=== PATIENT | male | born 1940 | race Two or more races ===

== ENCOUNTER 2023-04-01 09:49 | Emergency (ER) | payer OTHER ==
[~2023-04-01] VITALS: Ht 175.3 cm; Wt 77.1 kg
[2023-04-01] MEDS ORDERED: VASOTEC10 MG PO (10:20)
[2023-04-01] MEDS ORDERED: INDAPAMIDE2.5 MG PO (10:20)
[2023-04-01] MEDS ORDERED: ATORVASTATIN CA20 MG PO (10:20)
[2023-04-01] MEDS ORDERED: HORIZANT600 MG PO (10:21)
[2023-04-01] MEDS ORDERED: AMLODIPINE-OLM1 EAC2 PO (10:21)
[2023-04-01] MEDS ORDERED: ADULT LOW DOSE81 M1 PO (10:21)
[2023-04-01] MEDS ORDERED: HUMALOG100 UNIT/2 SUBCUTANEO (10:22)
[2023-04-01] MEDS ORDERED: LANTUS SOL100 UNIT/1 SUBCUTANEO (10:23)
[2023-04-01 11:49] LABS: PH,URINE 5.5 (5.0-8.0); URINE APPEARANCE Clear; URINE BILIRRUBIN Negative (NEGATIVE); URINE BLOOD Negative; URINE COLOR Yellow; URINE GLUCOSE Negative (NEGATIVE); URINE LEUKOCYTE Negative; URINE NITRATE Negative; URINE PROTEIN Negative (NEGATIVE); URINE UROBILINOGEN 0.2 E.U./dl
[2023-04-01 11:54] LABS: URINE BACTERIA 7.5 uL (0.0-1933); URINE EPITHELIAL CELLS 1.5 uL (0.0-38.8); URINE RBC 2.2 uL (0.0-20.8); URINE WBC 4.4 uL (0.0-23.2)
[2023-04-01 14:42] LABS: HEMATOCRIT 36.6 % (39.0-48.0); HEMOGLOBIN 12.6 g/dL (13-16.00); MEAN CELL VOLUME 95.2 fL (80.0-100.00); MEAN CORPUSCULAR HEMOGLOBIN 32.8 pg (27.00-32.0); MEAN CORPUSCULAR HGB CONC 34.4 g/dl (32.0-36.0); PLATELET COUNT 185 K/uL (150-450); RED BLOOD COUNT 3.85 M/uL (4.00-6.00); RED CELL DISTRIBUTION WIDTH 13.1 % (11.5-14.5)
[2023-04-01 15:05] LABS: ALBUMIN 3.7 gm/dL (3.4-5.0); BILIRUBIN TOTAL 0.54 mg/dL (0.3-1.2); BILIRUBIN,CONJUGATED 0.12 mg/dL (0.0-0.2); BILIRUBIN,UNCONJUGATED 0.42 mg/dL (0.0-0.6); CALCIUM 9.5 mg/dL (8.5-10.1); CREATININE SERUM 1.08 mg/dL (0.70-1.30); GFR 65.14; POTASSIUM 3.78 mEq/L (3.5-5.1); TOTAL PROTEIN 7.7 gm/dL (6.4-8.2)
== END 2023-04-01 18:54 | disposition home or self-care (01) ==
LOC: ER 09:49
PROVIDERS: General Practice
DX: K52.9 Noninfective gastroenteritis and colitis, unspecified (principal); E86.0 Dehydration; K57.30 Diverticulosis of large intestine without perforation or abscess without bleeding; Z20.822 Contact with and (suspected) exposure to COVID-19; I10 Essential (primary) hypertension; E11.9 Type 2 diabetes mellitus without complications; Z79.4 Long term (current) use of insulin; I50.9 Heart failure, unspecified
CPT/HCPCS: 36415; 74176; 96365; 96366; 99284; J0744; J3490

== ENCOUNTER 2024-09-21 19:42 | Emergency (ER) | payer OTHER ==
[~2024-09-21] VITALS: Ht 172.7 cm; Wt 73.5 kg
[~2024-09-21 19:42] MED LIST: ADULT LOW DOSE81 M1 PO; AMLODIPINE-OLM1 EAC2 PO; ATORVASTATIN CA20 MG PO; HORIZANT600 MG PO; HUMALOG100 UNIT/2 SUBCUTANEO; INDAPAMIDE2.5 MG PO; LANTUS SOL100 UNIT/1 SUBCUTANEO; VASOTEC10 MG PO
[2024-09-21] MEDS ORDERED: JARDIANCE10 MG (19:47)
[2024-09-21] MEDS ORDERED: ZYPREXA20 MG (19:48)
[2024-09-21] MEDS ORDERED: CLONAZEPAM0.125 MG (19:48)
[2024-09-21] MEDS ORDERED: ERLEADA60 MG (19:50)
[2024-09-21] MEDS ORDERED: XARELTO1 MG/1 ML (19:51)
[2024-09-21] MEDS ORDERED: CEFTRIAXONE SODIUM 2,000 MG VIAL IV STA (20:57)
[2024-09-21] MEDS ORDERED: CEFTRIAXONE SODIUM 1,000 MG VIAL ONE (21:15)
[2024-09-21 21:52] LABS: BASO % 0.5 % (0.1-1.2); EOS # 0.13 (0.04-0.54); EOS % 1.1 % (0.7-7.0); HEMATOCRIT 35.1 % (40.1-51.0); HEMOGLOBIN 11.6 g/dL (13.7-17.5); LYMPH % 8.6 % (19.3-53.1); MONO # 1.05 (0.24-0.82); NEUT # 9.34 (1.56-6.13); NEUT % 79.9 % (34.0-71.1); PLATELET COUNT 227 K/uL (163-369); RED CELL DISTRIBUTION WIDTH 18.6 % (11.6-14.4)
[2024-09-21 22:17] LABS: ALBUMIN 3.3 gm/dL (3.4-5.0); BILIRUBIN TOTAL 0.22 mg/dL (0.3-1.2); CREATININE SERUM 1.28 mg/dL (0.70-1.30); GFR 53.29; GLOBULINA 4.2 G/DL (2.4-3.5); POTASSIUM 3.59 mEq/L (3.5-5.1); TOTAL PROTEIN 7.5 gm/dL (6.4-8.2)
== END 2024-09-21 23:01 | disposition home or self-care (01) ==
LOC: ER 19:46
PROVIDERS: General Practice
DX: L03.011 Cellulitis of right finger (principal)